=== PATIENT | male | born 2000 | race Caucasian/White ===

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

== ENCOUNTER 2022-03-04 20:47 | Emergency (ER) | payer MEDICAID ==
[2022-03-04 20:54] VITALS: BP 126/75
[2022-03-04 21:14] LABS: RAPID STREP SCREEN Negative (Negative)
[2022-03-04] MEDS ORDERED: IBUPROFEN 800 MG TABLET PO STA (21:30)
[2022-03-04] MEDS ORDERED: PENICILLIN VK 250 MG TABLET PO STA (21:30)
[2022-03-04] MEDS ORDERED: DEXAMETHASONE 10 MG/ML VIAL PO STA (21:30)
--- NOTE | 2022-03-04 21:34 | ED Physician Documentation ---
History of Present Illness - Stated complaint Stated Complaint: SWOLLEN/SORE THROAT - Chief complaint Chief Complaint: Heent - History obtained from History obtained from: Patient - History of Present Illness Timing: How many weeks ago (1) Pain level max: 6 Pain level now: 5 - Additonal information Additional information: 21-year-old male complains of a sore throat for the past week. No rhinorrhea or congestion. No cough. No nausea or vomiting. Intermittent subjective fevers. No abdominal pain. No rash. Worse with eating and drinking, nothing makes it better. Review of Systems Constitutional: denies: Fever, Chills Nose: denies: Rhinorrhea / runny nose, Congestion Throat: denies: Sore throat Cardiac: denies: Chest pain / pressure GI: denies: Nausea, Vomiting, Diarrhea Skin: denies: Rash Musculoskeletal: denies: Neck pain, Back pain PD PAST MEDICAL HISTORY - Past Medical History Past Medical History: Yes Cardiovascular: Other Neuro: Migraines Psych: Depression - Past Surgical History Past Surgical History: No - Present Medications Home Medications: Ambulatory Orders Medication Instructions Recorded Confirmed Azithromycin [Zithromax] 250 mg PO DAILY #6 tablet 10/27/16 Ondansetron Odt [Zofran] 4 mg TL Q6H PRN #10 tablet 10/27/16 Promethazine [Phenergan] 25 mg PO Q6H PRN #10 tab 03/19/19 Ibuprofen [Motrin] 800 mg PO Q8H PRN #30 tablet 03/04/22 Penicillin V Potassium 500 mg PO Q6HR #40 tablet 03/04/22 - Allergies Allergies/Adverse Reactions: Allergies Allergy/AdvReac Type Severity Reaction Status Date / Time No Known Drug Allergies Allergy Verified 10/27/16 14:50 - Social History Does the pt smoke?: Yes Smoking Status: Current every day smoker Does the pt drink ETOH?: No Does the pt have substance abuse?: Yes - Immunizations Immunizations are current?: Yes - POLST Patient has POLST: No PD ED PE NORMAL - Vitals Vital signs reviewed: Yes - General General: Alert and oriented X 3, No acute distress, Well developed/nourished - HEENT HEENT: PERRL, Ears normal, Moist mucous membranes, Other (Moderate posterior oropharyngeal erythema, uvula midline. Normal phonation. No trismus. White exudates on the bilateral tonsils.) - Neck Neck: Supple, no meningeal sign, Other (shotty anterior LAD) - Cardiac Cardiac: RRR, Strong equal pulses - Respiratory Respiratory: No respiratory distress, Clear bilaterally - Abdomen Abdomen: Soft, Non tender, Non distended - Derm Derm: Warm and dry, No rash - Neuro Neuro: Alert and oriented X 3 - Psych Psych: Normal mood, Normal affect Results - Vitals Vitals: Vital Signs - 24 hr 03/04/22 20:51 Temperature 36.4 C L Heart Rate 98 Respiratory 16 Rate Blood Pressure 126/75 O2 Saturation 98 Oxygen O2 Source Room air - Labs Labs: Laboratory Tests 03/04/22 20:57 Group A Strep Rapid Negative PD MEDICAL DECISION MAKING - ED course Complexity details: reviewed results, considered differential, d/w patient ED course: Patient with negative rapid strep. Positive Centor criteria. Discussed risks and benefits of antibiotics. Patient does not want to wait for culture, will treat based on clinical symptoms. Given dexamethasone as well. Patient is well-appearing, nontoxic. Afebrile. Do not see a peritonsillar abscess at this time. Patient counseled regarding signs and symptoms for which I believe and urgent re-evaluation would be necessary. Patient with good understanding of and agreement to plan and is comfortable going home at this time This document was made in part using voice recognition software. While efforts are made to proofread this document, sound alike and grammatical errors may occur. Departure - Departure Disposition: 01 Home, Self Care Clinical Impression: Pharyngitis Qualifiers: Pharyngitis/tonsillitis etiology: unspecified etiology Qualified Code(s): J02.9 - Acute pharyngitis, unspecified Condition: Good Instructions: ED Strep Pharyngitis Poss Follow-Up: GISELE RUSSO MD [Primary Care Provider] - As Needed Prescriptions: Penicillin V Potassium 500 mg PO Q6HR #40 tablet Ibuprofen [Motrin] 800 mg PO Q8H PRN #30 tablet PRN Reason: PAIN &/OR FEVER Comments: Take all antibiotics until gone. Return if you worsen. Drink plenty of fluids. Your prescriptions were sent to [facility] in [place] today. A throat culture was also sent and we will call you if antibiotics need to be changed. Discharge Date/Time: 03/04/22 21:52
== END 2022-03-04 21:52 | disposition home or self-care (01) ==
LOC: ED 20:47
DX: J02.9 Acute pharyngitis, unspecified (principal); F17.200 Nicotine dependence, unspecified, uncomplicated
CPT/HCPCS: 87070; 87430; 99283; A9270

== ENCOUNTER 2023-01-19 16:55 | Emergency (ER) | payer MEDICAID ==
[2023-01-19 17:06] VITALS: BP 135/82
[2023-01-19] MEDS ORDERED: BUPRENORPHINE/NALOXONE 8-2 MG TAB SL STA (17:22)
--- NOTE | 2023-01-19 17:25 | ED Physician Documentation ---
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 Tried to get into [facility] today but they do not have any beds. He is feeling restless, cannot sleep, nauseous. He has been using meth amphetamines 2. PD PAST MEDICAL HISTORY - Past Medical History Cardiovascular: Other Neuro: Migraines Psych: Depression - Past Surgical History Past Surgical History: No - Present Medications Home Medications: Ambulatory Orders Medication Instructions Recorded Confirmed Ibuprofen [Motrin] 200 mg PO Q8H PRN 01/19/23 01/19/23 - Allergies Allergies/Adverse Reactions: Allergies Allergy/AdvReac Type Severity Reaction Status Date / Time No Known Drug Allergies Allergy Verified 01/19/23 17:05 - Social History Does the pt smoke?: Yes Smoking Status: Current every day smoker Does the pt drink ETOH?: No Does the pt have substance abuse?: Yes - Immunizations Immunizations are current?: Yes - POLST Patient has POLST: No PD ED PE NORMAL - Vitals Vital signs reviewed: Yes - General General: Alert and oriented X 3, Other (Slightly agitated and restless but cooperative) - Cardiac Cardiac: Other (Mildly tachycardic) - Respiratory Respiratory: Clear bilaterally - Abdomen Abdomen: Non tender - Extremities Extremities: Other (Picked at skin lesions on both hands) - Neuro Neuro: Alert and oriented X 3, Normal speech Results - Vitals Vitals: Vital Signs - 24 hr 01/19/23 17:02 Temperature 36.8 C Heart Rate 116 H Respiratory 16 Rate Blood Pressure 135/82 H O2 Saturation 99 Oxygen O2 Source Room air PD Medical Decision Making - ED course ED course: 22-year-old gentleman presents with narcotic withdrawal. He is administered Suboxone here to get him through, he plans to go to detox tomorrow. Departure - Departure Disposition: 01 Home, Self Care Clinical Impression: Narcotic withdrawal Condition: Good Record reviewed to determine appropriate education?: Yes Instructions: ED Narcotic Abuse Comments: Go to [facility] again tomorrow. Return if still having withdrawal symptoms that are uncontrolled and they do not have a bed.
== END 2023-01-19 17:30 | disposition home or self-care (01) ==
LOC: ED 16:55
DX: F11.23 Opioid dependence with withdrawal (principal); F17.200 Nicotine dependence, unspecified, uncomplicated
CPT/HCPCS: 99282; 99284

== ENCOUNTER 2023-03-24 10:59 | Emergency (ER) | payer MEDICAID ==
[2023-03-24 11:15] VITALS: BP 121/70
[2023-03-24] MEDS ORDERED: BUPRENORPHINE/NALOXONE 8-2 MG TAB SL STA (12:04)
--- NOTE | 2023-03-24 12:06 | ED Physician Documentation ---
History of Present Illness - Stated complaint Stated Complaint: ANXIETY/MUSCLE SPASMS - Chief complaint Chief Complaint: General - History obtained from History obtained from: Patient - Additonal information Additional information: He got out of detox for fentanyl about 2 weeks ago. He was given a limited supply of Suboxone and told to follow-up at [facility]. [facility] does not take his insurance he ran out of Suboxone a few days ago and now is feeling a lot of muscle cramps and anxiety. PD PAST MEDICAL HISTORY - Past Medical History Cardiovascular: Other Neuro: Migraines Psych: Depression - Past Surgical History Past Surgical History: No - Present Medications Home Medications: Ambulatory Orders Medication Instructions Recorded Confirmed Ibuprofen [Motrin] 200 mg PO Q8H PRN 01/19/23 01/19/23 - Allergies Allergies/Adverse Reactions: Allergies Allergy/AdvReac Type Severity Reaction Status Date / Time No Known Drug Allergies Allergy Verified 03/24/23 11:16 - Social History Does the pt smoke?: Yes Smoking Status: Current every day smoker Does the pt drink ETOH?: No Does the pt have substance abuse?: Yes - Immunizations Immunizations are current?: Yes - POLST Patient has POLST: No PD ED PE NORMAL - Vitals Vital signs reviewed: Yes - General General: Alert and oriented X 3, Other (Mildly anxious) - HEENT HEENT: Other (Dilated pupils) - Neuro Neuro: Alert and oriented X 3, Normal speech Results - Vitals Vitals: Vital Signs - 24 hr 03/24/23 11:09 Temperature 36.8 C Heart Rate 91 Respiratory 16 Rate Blood Pressure 121/70 O2 Saturation 100 Oxygen O2 Source Room air PD Medical Decision Making - ED course ED course: 22-year-old gentleman is in narcotic withdrawal. He was administered a dose of Suboxone here and referred to [facility] Departure - Departure Disposition: 01 Home, Self Care Clinical Impression: Narcotic withdrawal Condition: Good Record reviewed to determine appropriate education?: Yes Instructions: ED Narcotic Abuse Comments: Called the [facility] center tomorrow for next available appointment or I believe they take walk-in as well. Phone number is [phone].
== END 2023-03-24 12:19 | disposition home or self-care (01) ==
LOC: ED 10:59
DX: R25.2 Cramp and spasm (principal); F41.9 Anxiety disorder, unspecified; F11.23 Opioid dependence with withdrawal; T40.2X5A Adverse effect of other opioids, initial encounter; F17.200 Nicotine dependence, unspecified, uncomplicated
CPT/HCPCS: 99282; 99283